=== PATIENT | male | born 1980 | race African-American/Black ===

== ENCOUNTER 2019-10-04 20:39 | Emergency (ER) | payer OTHER ==
[~2019-10-04] VITALS: Ht 172.7 cm; Wt 88.5 kg
--- NOTE | 2019-10-04 21:39 | PHYS DOC ---
Past History Past Medical History: Migraines, Other Additional Past Medical Histor: nerve pain Past Surgical History: Other Additional Past Surgical Histo: LT knee ACL Alcohol Use: None Drug Use: None Adult General Chief Complaint Chief Complaint: Neck Pain.. " I fell saturday coming out of the dorm on the ice... " .. " Hit my head.. and neck hard.. and came down really hard on this Lt hip and side..." HPI HPI Patient is a 39 year old male who presents with above hx and complaints of neck and back injury after falling on ice on Saturday night. Patient localizes pain to the upper cervical area does have paracervical muscle spasm and tenderness. Does have pain on palpation of left iliac crest and hip. Distal neurovascular intact. Does have some muscle spasms along the left lumbar sacral area and tracks pain down left sciatic nerve. Straight leg lift exacerbates pain in left leg. Patient denies any history immunosuppression. Patient denies any travel or specific ill contacts. Patient denies any problems defecation or urination. Review of Systems Review of Systems Constitutional: Denies fever or chills [] Eyes: Denies change in visual acuity, redness, or eye pain [] HENT: Denies nasal congestion or sore throat [. The patient complaints of neck pain after fall Respiratory: Denies cough or shortness of breath [] Cardiovascular: No additional information not addressed in HPI [] GI: Denies abdominal pain, nausea, vomiting, bloody stools or diarrhea [] : Denies dysuria or hematuria [] Musculoskeletal: Denies back pain or joint pain. The patient complains of lumbar and left hip pain Integument: Denies rash or skin lesions [] Neurologic: Denies headache, focal weakness or sensory changes [] Endocrine: Denies polyuria or polydipsia [] All other systems were reviewed and found to be within normal limits, except as documented in this note. Family History Family History Noncontributory presentation Current Medications Current Medications See nursing for home meds Allergies Allergies No known drug allergies Physical Exam Physical Exam Constitutional: Well developed, well nourished, no acute distress, non-toxic appearance. [] HENT: Normocephalic, atraumatic, bilateral external ears normal, oropharynx moist, no oral exudates, nose normal. [] Eyes: PERRLA, EOMI, conjunctiva normal, no discharge. [] Neck: Normal range of motion, no tenderness, supple, no stridor. [] Cardiovascular:Heart rate regular rhythm, no murmur [] Lungs & Thorax: Bilateral breath sounds clear to auscultation [] Abdomen: Bowel sounds normal, soft, no tenderness, no masses, no pulsatile masses. [] No saddle loss reported Skin: Warm, dry, no erythema, no rash. [] Back: No tenderness, no CVA tenderness. [] Extremities: No tenderness, no cyanosis, no clubbing, ROM intact, no edema. [] Scar Lt knee. Straight leg lift Lt exacerbates Lt hip sciatic pain. DTRs +2 patella and brachial. Roll Press Operator equal. Neurologic: Alert and oriented X 3, normal motor function, normal sensory fun ction, no focal deficits noted. [] Psychologic: Affect normal, judgement normal, mood normal. [] Current Patient Data Vital Signs Vital Signs Date Time Temp Pulse Resp B/P (MAP) Pulse Ox O2 Delivery O2 Flow Rate FiO2 10/04/19 20:50 99.0 87 20 99 Room Air EKG EKG [] Radiology/Procedures Radiology/[place] [address] IMAGING REPORT Signed PATIENT: KEO PALOMO ACCOUNT: [id number] : 1980 LOCATION: ER AGE: 39 SEX: M EXAM STATUS: PRE ER ORD. PHYSICIAN: GURVINDER PEREIRA MD REASON: fall on ice PROCEDURE: CT LUMBAR SPINE WO CONTRAST CT LUMBAR SPINE WO CONTRAST, CT PELVIS WO CONTRAST History: Fall. Pain. Comparison: None. Technique: Noncontrast CT imaging was performed of the pelvis and lumbar spine. Coronal and sagittal reconstructions were performed. Exposure: One or more of the following individualized dose reduction techniques were utilized for this examination: 1. Automated exposure control 2. Adjustment of the mA and/or kV according to patient size 3. Use of iterative reconstruction technique. Findings: Lumbar spine CT: Normal vertebral body height and alignment. No fracture. Mild multilevel degenerative disc changes. No high-grade canal or neuroforaminal narrowing. Pelvic CT: Normal alignment of the hips. No fracture. Intrapelvic contents are unremarkable. Mild bilateral hip DJD. Impression: 1. No acute fracture or subluxation of the lumbar spine or pelvis. 2. Mild multilevel lumbar spondylosis and bilateral hip DJD. Electronically signed by: Mars Degroot DO (10/04/2019 10:37 PM) [facility] [place] DICTATED AND SIGNED BY: MARS DEGROOT DO DATE: 10/04/192236 CC: GURVINDER PEREIRA MD ~ [address] [address] IMAGING REPORT Signed PATIENT: KEO PALOMO ACCOUNT: [id number] : 1980 LOCATION: ER AGE: 39 SEX: M EXAM STATUS: PRE ER ORD. PHYSICIAN: GURVINDER PEREIRA MD REASON: fall on ice PROCEDURE: CT LUMBAR SPINE WO CONTRAST CT LUMBAR SPINE WO CONTRAST, CT PELVIS WO CONTRAST History: Fall. Pain. Comparison: None. Technique: Noncontrast CT imaging was performed of the pelvis and lumbar spine. Coronal and sagittal reconstructions were performed. Exposure: One or more of the following individualized dose reduction techniques were utilized for this examination: 1. Automated exposure control 2. Adjustment of the mA and/or kV according to patient size 3. Use of iterative reconstruction technique. Findings: Lumbar spine CT: Normal vertebral body height and alignment. No fracture. Mild multilevel degenerative disc changes. No high-grade canal or neuroforaminal narrowing. Pelvic CT: Normal alignment of the hips. No fracture. Intrapelvic contents are unremarkable. Mild bilateral hip DJD. Impression: 1. No acute fracture or subluxation of the lumbar spine or pelvis. 2. Mild multilevel lumbar spondylosis and bilateral hip DJD. Electronically signed by: Mars Degroot DO (10/04/2019 10:37 PM) [facility] DICTATED AND SIGNED BY: MARS DEGROOT DO DATE: 10/04/192236 CC: GURVINDER PEREIRA MD ~ [][address] [address] IMAGING REPORT Signed PATIENT: KEO PALOMO ACCOUNT: [id number] : 1980 LOCATION: ER AGE: 39 SEX: M EXAM STATUS: PRE ER ORD. PHYSICIAN: GURVINDER PEREIRA MD REASON: fall on ice PROCEDURE: CT HEAD AND CERVICAL SPINE WO CT HEAD AND CERVICAL SPINE WO History: Fall. Pain. Comparison: None. Technique: Noncontrast CT imaging was performed of the head and cervical spine. Coronal and sagittal reconstructions were performed. Exposure: One or more of the following individualized dose reduction techniques were utilized for this examination: 1. Automated exposure control 2. Adjustment of the mA and/or kV according to patient size 3. Use of iterative reconstruction technique. Findings: Head CT: No intracranial hemorrhage. No mass effect. No hydrocephalus. Extra-axial spaces are unremarkable. Imaged orbits are unremarkable. Imaged paranasal sinuses and mastoid air cells are clear. No acute calvarial fracture. Cervical spine CT: Normal vertebral body height and alignment. No fracture. Mild degenerative disc changes C5-C6. No high-grade canal or neuroforaminal narrowing. Soft tissues unremarkable. Impression: Head CT: 1. No acute intracranial abnormality. Cervical spine CT: 1. No acute fracture or subluxation of the cervical spine. Electronically signed by: Mars Degroot DO (10/04/2019 10:31 PM) [facility] Course & Med Decision Making Course & Med Decision Making Pertinent Labs and Imaging studies reviewed. (See chart for details) Patient use ice packs as needed. Take Tylenol ibuprofen needed for pain. Follow- up primary care. Return if any concerns. Impression: 1. Hx. Fall 2. Contusions 3. Neck sprain 4. Lumbar sacral strain 5. Sciatica left [] Dragon Disclaimer Dragon Disclaimer This electronic medical record was generated, in whole or in part, using a voice recognition dictation system. Departure Departure: Disposition: HOME/RESIDENCE PRIOR TO ADM Condition: STABLE Dragon Disclaimer This chart was dictated in whole or in part using Voice Recognition software in a busy, high-work load, and often noisy Emergency Department environment. It may contain unintended and wholly unrecognized errors or omissions. Dragon Disclaimer This chart was dictated in whole or in part using Voice Recognition software in a busy, high-work load, and often noisy Emergency Department environment. It may contain unintended and wholly unrecognized errors or omissions. GURVINDER PEREIRA MD Oct 04, 2019 21:39
[2019-10-04] MEDS ORDERED: ORPHENADRINE CITRATE 60 MG/2 ML VIAL. IM ONE (21:45)
[2019-10-04] MEDS ORDERED: KETOROLAC 60 MG/2 ML VIAL. IM ONE (21:45)
[2019-10-04] MEDS ORDERED: KETOROLAC 30 MG/ML VIAL. ONE (21:57)
[2019-10-04 22:27] LABS: AMORPHOUS SEDIMENT,UR PRESENT /HPF; BACTERIA,URINE 0 /HPF (0-FEW); BILIRUBIN,URINE NEG (NEG); CLARITY,URINE HAZY; COLOR,URINE AMBER; GLUCOSE,URINE NEG (NEG); NITRITE,URINE NEG (NEG); RBC,URINE 0 /HPF (0-2); SQUAMOUS EPITHELIAL CELL,UR OCC /LPF; WBC,URINE 0 /HPF (0-4)
--- NOTE | 2019-10-04 22:34 | RAD ---
CT HEAD AND CERVICAL SPINE WO History: Fall. Pain. Comparison: None. Technique: Noncontrast CT imaging was performed of the head and cervical spine. Coronal and sagittal reconstructions were performed. Exposure: One or more of the following individualized dose reduction techniques were utilized for this examination: 1. Automated exposure control 2. Adjustment of the mA and/or kV according to patient size 3. Use of iterative reconstruction technique. Findings: Head CT: No intracranial hemorrhage. No mass effect. No hydrocephalus. Extra-axial spaces are unremarkable. Imaged orbits are unremarkable. Imaged paranasal sinuses and mastoid air cells are clear. No acute calvarial fracture. Cervical spine CT: Normal vertebral body height and alignment. No fracture. Mild degenerative disc changes C5-C6. No high-grade canal or neuroforaminal narrowing. Soft tissues unremarkable. Impression: Head CT: 1. No acute intracranial abnormality. Cervical spine CT: 1. No acute fracture or subluxation of the cervical spine. Electronically signed by: Mich Ritchie DO (10/04/2019 10:31 PM) [facility]
[2019-10-04 22:35] LABS: BARBITURATES NEG (NEG); BENZODIAZEPINES NEG (NEG); CANNABINOIDS NEG (NEG); COCAINE NEG (NEG); METHADONE NEG (NEG); OPIATES NEG (NEG); PHENCYCLIDINE NEG (NEG)
[2019-10-04 22:37] LABS: AMPHETAMINE/METHAMPHETAMINE NEG (NEG)
--- NOTE | 2019-10-04 22:40 | RAD ---
CT LUMBAR SPINE WO CONTRAST, CT PELVIS WO CONTRAST History: Fall. Pain. Comparison: None. Technique: Noncontrast CT imaging was performed of the pelvis and lumbar spine. Coronal and sagittal reconstructions were performed. Exposure: One or more of the following individualized dose reduction techniques were utilized for this examination: 1. Automated exposure control 2. Adjustment of the mA and/or kV according to patient size 3. Use of iterative reconstruction technique. Findings: Lumbar spine CT: Normal vertebral body height and alignment. No fracture. Mild multilevel degenerative disc changes. No high-grade canal or neuroforaminal narrowing. Pelvic CT: Normal alignment of the hips. No fracture. Intrapelvic contents are unremarkable. Mild bilateral hip DJD. Impression: 1. No acute fracture or subluxation of the lumbar spine or pelvis. 2. Mild multilevel lumbar spondylosis and bilateral hip DJD. Electronically signed by: Mich Ritchie DO (10/04/2019 10:37 PM) [facility]
[2019-10-04 23:14] VITALS: BP 116/79
== END 2019-10-04 23:19 | disposition home or self-care (01) ==
LOC: ER 20:39
DX: S13.9XXA Sprain of joints and ligaments of unspecified parts of neck, initial encounter (principal); S39.012A Strain of muscle, fascia and tendon of lower back, initial encounter; M54.32 Sciatica, left side; M25.552 Pain in left hip; G43.909 Migraine, unspecified, not intractable, without status migrainosus; W00.0XXA Fall on same level due to ice and snow, initial encounter; Y93.89 Activity, other specified; Y92.89 Other specified places as the place of occurrence of the external cause; Y99.8 Other external cause status
CPT/HCPCS: 36415; 70450; 72125; 72131; 72192; 80307; 81001; 96372; 99285; J1885; J2360